=== PATIENT | male | born 1980 | race Caucasian/White ===

== ENCOUNTER 2016-03-31 20:31 | Emergency (ER) | payer OTHER ==
[~2016-03-31] VITALS: Ht 177.8 cm; Wt 81.2 kg
[2016-03-31 20:53] VITALS: BP 146/79
--- NOTE | 2016-03-31 21:21 | NUR ---
PT TAKEN TO BED 1
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
--- NOTE | 2016-03-31 21:49 | NUR ---
Patient being evaluated by physician DR HARMAN at bedside.
--- NOTE | 2016-03-31 22:14 | NUR ---
X-Ray at bedside.
--- NOTE | 2016-03-31 22:15 | NUR ---
XRAY AT BEDSIDE
[2016-03-31 22:45] VITALS: BP 128/77
--- NOTE | 2016-03-31 22:45 | NUR ---
Patient discharged with v/s stable. Written and verbal after care instructions given and explained. Patient verbalized understanding. Ambulatory with steady gait. All questions addressed prior to discharge. Advised to follow up with PMD.
== END 2016-03-31 22:45 | disposition home or self-care (01) ==
LOC: MED 20:31
DX: R00.2 Palpitations (principal); R42 Dizziness and giddiness; R11.0 Nausea

== ENCOUNTER 2018-01-16 11:16 | Emergency (ER) | payer OTHER ==
[~2018-01-16] VITALS: Ht 177.8 cm; Wt 79.4 kg
--- NOTE | 2018-01-16 11:19 | NUR ---
PT TO BED 8 VIA WHEELCHAIR
[2018-01-16 11:22] VITALS: BP 138/112
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
--- NOTE | 2018-01-16 11:47 | NUR ---
XRAY AT BEDSIDE
--- NOTE | 2018-01-16 13:10 | NUR ---
Patient being evaluated by physician at bedside.
--- NOTE | 2018-01-16 13:30 | NUR ---
Patient discharged with v/s stable. Written and verbal after care instructions given and explained.Patient alert, oriented and verbalized understanding of instructions. Wheel Chair Assisted with to home. All questions addressed prior to discharge. ID band removed. Patient advised to follow up with PMD. Rx of ULTRAM given. Patient educated on indication of medication including possible reaction and side effects. Opportunity to ask questions provided and answered.
[2018-01-16 13:40] VITALS: BP 152/86
== END 2018-01-16 13:30 | disposition home or self-care (01) ==
LOC: MED 11:16
DX: S86.011A Strain of right Achilles tendon, initial encounter (principal); X58.XXXA Exposure to other specified factors, initial encounter; Y93.67 Activity, basketball; Y92.89 Other specified places as the place of occurrence of the external cause; Y99.8 Other external cause status
CPT/HCPCS: 29515; 73610; 73630; 99283